=== PATIENT | female | born 1980 | race Caucasian/White ===

== ENCOUNTER → 2024-02-23 18:25 | Outpatient (REF) | payer OTHER, SELFPAY | LOC: WDC 18:25 | PROVIDERS: ATTENDING PHYSICIAN Nurse Practitioner Adult Health | DX: Z12.31 Encounter for screening mammogram for malignant neoplasm of breast (principal) | CPT/HCPCS: 77063; 77067 ==

== ENCOUNTER → 2025-01-08 14:40 | Outpatient (REF) | payer OTHER, SELFPAY | LOC: HWRAD 14:40 | PROVIDERS: ATTENDING PHYSICIAN Physician Assistant Medical | DX: Z76.89 Persons encountering health services in other specified circumstances (principal); R05.3 Chronic cough | CPT/HCPCS: 71046 ==

== ENCOUNTER → 2025-01-12 11:29 | Outpatient (REF) | payer OTHER, SELFPAY | LOC: HWRAD 11:29 | PROVIDERS: ATTENDING PHYSICIAN Physician Assistant Medical | DX: E04.1 Nontoxic single thyroid nodule (principal) | CPT/HCPCS: 76536 ==

== ENCOUNTER → 2025-08-11 10:49 | Outpatient (REF) | payer OTHER, SELFPAY | LOC: WDC 10:49 | PROVIDERS: FAMILY PHYSICIAN Physician Assistant Medical | DX: Z12.31 Encounter for screening mammogram for malignant neoplasm of breast (principal) | CPT/HCPCS: 77063; 77067 ==